=== PATIENT | male | born 1950 | race Caucasian/White ===

== ENCOUNTER 2017-12-03 08:44 | Day surgery (SDC) | payer BC ==
[~2017-12-03 08:44] MED LIST: Buffered Lidocaine 0.9% SYRIN* 5 ML/SYR SYRINGE INTRADERM ONE
[2017-12-03] MEDS ORDERED: Famotidine IV* 10 MG/ML 2 ML (20 mg) ONE (08:51)
[2017-12-03] MEDS ORDERED: Dexamethasone IV* 4 MG/ML 1 ML (4 MG) ONE (08:52)
[2017-12-03] MEDS ORDERED: ceFAZolin 2 GM in NS 0.9% 100 ml IVPB ONE (09:00)
[2017-12-03] MEDS ORDERED: fentaNYL* 50 MCG/ML 2 ML VIAL (100 MCG VIAL) ONE (09:06)
[2017-12-03] MEDS ORDERED: Midazolam* 1 MG/ML 2 ML VIAL (2 MG) ONE (09:06)
[2017-12-03] MEDS ORDERED: Propofol* 10 MG/ML 20 ML BTL IV PUSH ONE (09:07)
[2017-12-03] MEDS ORDERED: Rocuronium* 10 MG/ML VIAL ONE (09:07)
[2017-12-03] MEDS ORDERED: Lidocaine 2% PF * 5 ML VIAL ONE (09:07)
[2017-12-03] MEDS: Dexamethasone IV* 4 MG/ML 1 ML (4 MG) IV SLOW PU ONE ×2 (09:14→09:28)
[2017-12-03] MEDS: Famotidine IV* 10 MG/ML 2 ML (20 mg) IV ONE ×2 (09:14→09:28)
[2017-12-03] MEDS ORDERED: EPINEPHRINE 1 MG/ML 1 ML VIAL ONE (10:50)
[2017-12-03] MEDS ORDERED: EPHEDrine (Pressors)* 50 MG/ML VIAL ONE (11:53)
[2017-12-03] MEDS ORDERED: oxyCODONE/Acetamin 5/325 MG* TAB PO PRN (11:59)
[2017-12-03] MEDS ORDERED: PROCHLORPERAZINE INJ 5 MG/ML 2 ML VIAL IV PRN (11:59)
[2017-12-03] MEDS ORDERED: HYDROmorphone INJ* 1 MG/ML CARPUJECT SYRINGE IV PRN (11:59)
[2017-12-03] MEDS ORDERED: Ondansetron INJ* 2 MG/ML VIAL IV PRN (11:59)
[2017-12-03] MEDS ORDERED: fentaNYL* 50 MCG/ML 2 ML VIAL (100 MCG VIAL) IV PRN (11:59)
[2017-12-03] MEDS ORDERED: Naloxone* 0.4 MG/ML 1 ML VIAL IV PRN (11:59)
[2017-12-03] MEDS ORDERED: Ondansetron INJ* 2 MG/ML VIAL ONE (12:44)
[2017-12-03] MEDS ORDERED: Ketorolac INJ* 30 MG/ML 1 ML VIAL ONE (12:44)
[2017-12-03] MEDS ORDERED: HYDROmorphone INJ* 1 MG/ML CARPUJECT SYRINGE ONE (13:33)
[2017-12-03] MEDS ORDERED: Neostigmine Methylsulfate* 2 MG/2 ML SYRINGE ONE (14:21)
[2017-12-03] MEDS ORDERED: Glycopyrrolate IV* 0.2 MG/ML 1 ML VIAL ONE (14:21)
[2017-12-03 16:57] VITALS: BP 134/64
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
== END 2017-12-03 17:20 | disposition home or self-care (01) ==
LOC: OR 08:44
PROVIDERS: ATTEND Orthopaedic Surgery
DX: M75.121 Complete rotator cuff tear or rupture of right shoulder, not specified as traumatic (principal); M75.21 Bicipital tendinitis, right shoulder; M75.41 Impingement syndrome of right shoulder; M19.011 Primary osteoarthritis, right shoulder; M75.01 Adhesive capsulitis of right shoulder; Z87.891 Personal history of nicotine dependence
CPT/HCPCS: J0690; J1100; J1170; J1885; J2250; J2405; J2704; J3010

== ENCOUNTER 2018-06-06 15:38 | Emergency (ER) | payer BC ==
--- OUTSIDE RECORDS SUMMARY | 2018-06-06 15:45 | XMS REPORT ---
:1950 External Reference #:[id number] Author Organization [employer] Address [address] [place] [address] [place] [address] Phone [phone] Care Team Providers Name Role Phone Aaron Kyle MD Primary Care Physician Unavailable Payers Type Date Identification Numbers Payment Provider Subscriber Commercial Effective: Policy Number: [id number] [employer] Shaye Queen 2016 PayID: [id number] [address] [address] [place] [address] Problems Date Description Provider Status Onset: 06/24/2016 Localized, primary osteoarthritis Keyana Mejia M.D. 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 ETOH Use Currently consumes alcohol 2-3 drinks/week in summer Smoking Patient is a former smoker Exercise Type/Frequency Exercises regularly Allergies, Adverse Reactions, Alerts Date Description Reaction Status Severity Comments 06/24/2016 NKDA active Medications Medication Date Status Form Strength Qnty SIG Indications Ordering Provider No Active Active Unknown Medications 018 No Active Hx Unknown Medications 016 - 016 Naproxen Hx Tablets 500mg 30tabs 1 tablet M25.511 Keyana 016 - with food Chepe Mejia by mouth 018 twice a day Medications Administered in Office Medication Date Status Form Strength Qnty SIG Indications Ordering Provider Depomedrol Administered Injection Keyana 40MG Estefania DoeD. Vital Signs Date Vital Result Comment 06/02/2018 Height 69 inches 5'9" Heart Rate 65 /min BP Systolic 108 mmHg BP Diastolic 64 mmHg Respiratory Rate 16 /min Body Temperature 97.6 F Pain Level 0 03/26/2018 Height 69 inches 5'9" Weight 165.00 lb Heart Rate 64 /min Respiratory Rate 15 /min Pain Level 0 BMI (Body Mass Index) 24.4 kg/m2 02/12/2018 Height 69 inches 5'9" Weight 165.00 lb BP Systolic 119 mmHg BP Diastolic 67 mmHg Respiratory Rate 16 /min Pain Level 0 BMI (Body Mass Index) 24.4 kg/m2 01/13/2018 Height 69 inches 5'9" Weight 165.00 lb Heart Rate 73 /min Respiratory Rate 13 /min Body Temperature 98.4 F Pain Level 0 BMI (Body Mass Index) 24.4 kg/m2 12/16/2017 Height 69 inches 5'9" Heart Rate 60 /min BP Systolic 130 mmHg BP Diastolic 68 mmHg Respiratory Rate 16 /min Body Temperature 98.0 F Pain Level 1 11/13/2017 Height 69 inches 5'9" Weight 165.00 lb BP Systolic 124 mmHg BP Diastolic 80 mmHg Respiratory Rate 15 /min Pain Level 3 BMI (Body Mass Index) 24.4 kg/m2 10/16/2017 Height 69 inches 5'9" Weight 165.00 lb BP Systolic 127 mmHg BP Diastolic 63 mmHg Respiratory Rate 15 /min Pain Level 1 BMI (Body Mass Index) 24.4 kg/m2 10/09/2017 Height 69 inches 5'9" Weight 165.00 lb Heart Rate 58 /min BP Systolic 129 mmHg BP Diastolic 64 mmHg Respiratory Rate 16 /min Pain Level 3 BMI (Body Mass Index) 24.4 kg/m2 07/24/2016 Heart Rate 51 /min BP Systolic 118 mmHg BP Diastolic 68 mmHg Pain Level 0 06/24/2016 Height 68 inches 5'8" Weight 177.00 lb Heart Rate 67 /min BP Systolic 117 mmHg BP Diastolic 79 mmHg BMI (Body Mass Index) 26.9 kg/m2 Results Description No Information Procedures Date CPT Code Description Status 12/03/2017 61776 Arthroscopy Shoulder,W/Rotator Cuff Repair Completed 12/03/2017 30768 Arthroscopy Shoulder,W/Rotator Cuff Repair Completed 12/03/2017 46796 Arthroscopy,Shoulder Decompression Of Subacromial Space Completed W/Acromio 12/03/2017 07534 Arthroscopy,Shoulder Decompression Of Subacromial Space Completed W/Acromio 12/03/2017 47790 Arthroscopy,Shoulder,Distal Claviculectomy Incl Dist Completed Articular SR 12/03/2017 77868 Arthroscopy,Shoulder,Distal Claviculectomy Incl Dist Completed Articular SR 06/24/2016 75679 Inject/Drain Joint/Bursa Major W/O US Completed Encounters Type Date Location Provider CPT E/M Dx Office Visit 03/26/2018 [facility] Christ[facility] Carlson, 51831 M75.121 10:00a [facility] M75.41 M19.011 M75.21 M75.01 Z47.89 Office Visit 10/16/2017 8:45a [facility] Christ[facility] Carlson 87702 M75.121 [facility] M19.011 M75.41 Office Visit 10/09/2017 10:00a [facility] Christophe Carlson, 82355 M25.511 [facility] Office Visit 07/24/2016 9:30a [facility] Keyana Mejia M.D. 31287 M25.562 [facility] M17.12 M25.462 Office Visit 06/24/2016 10:00a [facility] Mejia M.D. 25168 M25.562 [facility] M17.12 M25.462 Plan of Care Future Appointment(s):09/03/2018 9:30 am - Christ[facility]2018 - Christophe Carlson, MDM75.121 Complete rotatr-cuff tear/ruptr of r shoulder, not traumaNew Therapy:Physical TherapyFollow up:Follow up: 3 lpnzmyW57.011 Primary osteoarthritis, right qfgkvhfuS19.41 Impingement syndrome of right xedrshjdM79.21 Bicipital tendinitis , right lxddmhleR10.01 Adhesive capsulitis of right shoulder
[2018-06-06 15:54] VITALS: BP 133/69
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
[2018-06-06] MEDS ORDERED: Ibuprofen TAB* 600 MG PO ONE (16:23)
--- NOTE | 2018-06-06 17:05 | RAD ---
Indication: Left hand and thumb pain. 4 views of left hand demonstrates nondisplaced fracture through the proximal first metacarpal. Joint spaces well-preserved. The remainder of the metacarpals are unremarkable. IMPRESSION: Nondisplaced fracture proximal end of the first metacarpal.
== END 2018-06-06 17:31 | disposition home or self-care (01) ==
LOC: UCEAST 15:38
DX: S62.292A Other fracture of first metacarpal bone, left hand, initial encounter for closed fracture (principal); V18.0XXA Pedal cycle driver injured in noncollision transport accident in nontraffic accident, initial encounter; Y93.55 Activity, bike riding; Y92.89 Other specified places as the place of occurrence of the external cause; Z87.891 Personal history of nicotine dependence
CPT/HCPCS: 99213; A9270-GY; G0463